=== PATIENT | male | born 2000 | race Caucasian/White ===

== ENCOUNTER 2020-09-01 15:26 | Emergency (ER) | payer OTHER, SELFPAY ==
[2020-09-01 15:43] VITALS: BP 130/78; PULSE 93; RESP 16; TEMP 37.1; O2SAT 98; BMI 41.8
--- NOTE | 2020-09-01 15:51 | DI.CT.S_ITS ---
PROCEDURE: CT THORACIC SPINE WO CON INDICATIONS: Fall/injury TECHNIQUE: Noncontrast 3 mm thick sections acquired through the region of interest in the thoracic spine. Sagittal and coronal reformats were then constructed. For radiation dose reduction, the following was used: automated exposure control. COMPARISON: None. FINDINGS: Image quality: Excellent. Bones: There is normal overall bony alignment. No acute vertebral body compression fractures. No suspicious sclerotic or lytic bony lesions. Central spinal canal is of normal overall caliber. Soft tissues: No paravertebral masses or hematomas. Visualized posteromedial lungs appear clear. IMPRESSION: No evidence of acute thoracic fracture or dislocation. Dictated by: Natanael Asif M.D. on 09/01/2020 at 16:31 Approved by: Natanael Asif M.D. on 09/01/2020 at 16:33
--- NOTE | 2020-09-01 15:51 | DI.CT.S_ITS ---
PROCEDURE: CT HEAD/BRAIN WO CON INDICATIONS: fall TECHNIQUE: Noncontrast 4.5 mm thick angled axial sections acquired from the foramen magnum to the vertex, with coronal and sagittal reformats. For radiation dose reduction, the following was used: automated exposure control, adjustment of mA and/or kV according to patient size. COMPARISON: None. FINDINGS: Image quality: Excellent. CSF spaces: Basal cisterns are patent. No extra-axial fluid collections. Ventricles are normal in size and shape. Brain: No midline shift. No intracranial masses or hemorrhage. Lopez-white matter interface is normal. Skull and face: Calvarium and visualized facial bones are intact, without suspicious lesions. Sinuses: Visualized sinuses and mastoids are clear. IMPRESSION: CT head without acute intracranial abnormalities or acute calvarial fractures. Dictated by: Minh Whitfield M.D. on 09/01/2020 at 15:28 Approved by: Minh Whitfield M.D. on 09/01/2020 at 15:30
--- NOTE | 2020-09-01 15:51 | DI.CT.S_ITS ---
PROCEDURE: CT CERVICAL SPINE WO CON INDICATIONS: fall/injury TECHNIQUE: Noncontrast 3 mm thick sections acquired from the skull base to the T4 level. Sagittal and coronal reformats were then constructed. For radiation dose reduction, the following was used: automated exposure control, adjustment of mA and/or kV according to patient size. COMPARISON: None. FINDINGS: Image quality: Excellent. Bones: No acute fractures or dislocations. Visualized superior ribs are intact. Straightening of cervical lordosis which may be due to patient positioning within a cervical collar and/or concurrent muscle spasms. Soft tissues: Prevertebral soft tissues are normal in thickness. No paravertebral hematomas. No apical pneumothoraces. IMPRESSION: Cervical spine without acute fracture or malalignment. Dictated by: Minh Whitfield M.D. on 09/01/2020 at 15:25 Approved by: Minh Whitfield M.D. on 09/01/2020 at 15:28
--- NOTE | 2020-09-01 15:59 | ED_ITS ---
HPI - Fall General Chief Complaint: Back Pain/Injury Stated Complaint: fall of ladder at work Time Seen by Provider: 09/01/20 15:50 Source: patient Mode of arrival: Ambulatory History of Present Illness HPI Narrative: Patient states he still 15 ft off a ladder. No loss of consciousness. Complains of head and neck pain and back pain. Denies any chest or abdominal or any other limb pain. Denies any trouble breathing. No nausea or vomiting. No vision changes. No confusion. Review of Systems Review of Systems Narrative: GENERAL: Denies chills, fatigue, malaise, fever, sweats. HEENT: Denies sinus pain, ear pain, sore throat, difficulty swallowing RESPIRATORY: Denies dyspnea, cough CARDIOVASCULAR: Denies chest pain, palpitations, edema, GASTROINTESTINAL: Denies nausea, vomiting, abdominal pain, diarrhea, constipation, melena. : Denies dysuria, frequency, hematuria MUSCULOSKELETAL: Complains muscle or bony pain SKIN: Denies rash, skin lesions NEUROLOGIC: Denies weakness, headache, numbness, change in speech, confusion PSYCHIATRIC: No SI or HI or hallucinations ROS Unobtainable: All systems reviewed & are unremarkable except as noted in HPI and below Patient History tobacco type: vaping alcohol intake frequency: a few times a month Substance Use Type: does not use Exam Narrative Exam Narrative: GENERAL: patient appears stated age. Well-nourished, well- developed patient, in no distress, not toxic not dyspneic, clothing removed. Patient remains in underwear HEAD: Normocephalic. Nontender scalp and head and face. Atraumatic. EYES: Pupils equal round and reactive. No scleral icterus. No injection no discharge ENT: Mucous membranes moist. No drooling no tongue elevation no trismus no malocclusion NECK: Trachea midline. No midline tenderness or step-off. Mild bilateral paracervical muscle tenderness CARDIOVASCULAR: Regular rate and rhythm without murmurs, gallops, or rubs. RESPIRATORY: Clear to auscultation. Breath sounds equal bilaterally. No wheezes, rales, or rhonchi. GASTROINTESTINAL: Abdomen soft, non-tender, nondistended. EXTREMITIES: No gross deformities. Nontender bilateral shoulders elbows wrists pelvis hips knees and ankles. No deformities. Full active range of motion without any difficulties on these joints. BACK: There is no midline tenderness or step-off of the thoracic or lumbar spine. There is mild diffuse bilateral paralumbar and parathoracic muscle tenderness. There is a ovoid abrasion in the right paralumbar area. Mild tenderness. Patient does not not want a tetanus shot. No bleeding. NEURO: AOx4. Clear speech no facial droop light touch intact to bilateral face hands and feet. Strong equal vice president pharmacy. Steady suffocate no ataxia. No footdrop. SKIN: Warm and dry PSYCH: Not anxious, is cooperative Initial Vital Signs Initial Vital Signs: Vital Signs Temperature 98.8 F 09/01/20 15:43 Pulse Rate 93 H 09/01/20 15:43 Respiratory Rate 16 09/01/20 15:43 Blood Pressure 130/78 09/01/20 15:43 Pulse Oximetry 98 09/01/20 15:43 Course Course Course Narrative: No new issues well visit in emergency department Orders Ordered: ED Orders 09/01/20 15:51 CT cervical spine wo con Stat CT head/brain wo con Stat CT thoracic spine wo con Stat 09/01/20 15:57 CT lumbar spine wo con Stat Reevaluation(s) Reevaluation #1: Reviewed results with patient. He does not want a tetanus shot. He desires discharge home. He is comfortable with [id number] Tylenol and ibuprofen Time: 16:55 Vital Signs Vital signs: Vital Signs - 8 hr 09/01/20 15:43 Temperature 98.8 F Pulse Rate 93 H Respiratory Rate 16 Blood Pressure 130/78 Pulse Oximetry 98 MDM - Fall Differential Diagnosis Differential diagnosis: Likely compression fracture and other (Abrasion contusion) Imaging Data CT scan - head: Radiologist's Impression: [address] [address] [address] Scan Report Signed Patient: Leticia Bustos#: [id number] : 2000Acct:[id number] Age/Sex: 20 / MDate of Service: 09/01/20 Loc: ED Accession Number: [id number] Procedure: CT head/brain wo con Ordering Provider: Kyle Zavala MD PROCEDURE: CT HEAD/BRAIN WO CON INDICATIONS: fall TECHNIQUE: Noncontrast 4.5 mm thick angled axial sections acquired from the foramen magnum to the vertex, with coronal and sagittal reformats. For radiation dose reduction, the following was used: automated exposure control, adjustment of mA and/or kV according to patient size. COMPARISON: None. FINDINGS: Image quality: Excellent. CSF spaces: Basal cisterns are patent. No extra-axial fluid collections. Ventricles are normal in size and shape. Brain: No midline shift. No intracranial masses or hemorrhage. Lopez-white matter interface is normal. Skull and face: Calvarium and visualized facial bones are intact, without suspicious lesions. Sinuses: Visualized sinuses and mastoids are clear. IMPRESSION: CT head without acute intracranial abnormalities or acute calvarial fractures. Dictated by: Minh Whitfield M.D. on 09/01/2020 at 15:28 Approved by: Minh Whitfield M.D. on 09/01/2020 at 15:30 CT - cervical spine: Radiologist's Impression: [place] [address] CT Scan Report Signed Patient: Leticia Bustos#: [id number] : 2000Acct:[id number] Age/Sex: 20 / MDate of Service: 09/01/20 Loc: ED Accession Number: [id number] Procedure: CT cervical spine wo con Ordering Provider: Kyle Zavala MD PROCEDURE: CT CERVICAL SPINE WO CON INDICATIONS: fall/injury TECHNIQUE: Noncontrast 3 mm thick sections acquired from the skull base to the T4 level. Sagittal and coronal reformats were then constructed. For radiation dose reduction, the following was used: automated exposure control, adjustment of mA and/or kV according to patient size. COMPARISON: None. FINDINGS: Image quality: Excellent. Bones: No acute fractures or dislocations. Visualized superior ribs are intact. Straightening of cervical lordosis which may be due to patient positioning within a cervical collar and/or concurrent muscle spasms. Soft tissues: Prevertebral soft tissues are normal in thickness. No paravertebral hematomas. No apical pneumothoraces. IMPRESSION: Cervical spine without acute fracture or malalignment. Dictated by: Minh Whitfield M.D. on 09/01/2020 at 15:25 Approved by: Minh Whitfield M.D. on 09/01/2020 at 15:28 CT scan thoracic spine: Radiologist's Impression: [address] [address] [address] Scan Report Signed Patient: Theresa BustosSergio#: [id number] : 2000Acct:[id number] Age/Sex: 20 / MDate of Service: 09/01/20 Loc: ED Accession Number: [id number] Procedure: CT thoracic spine wo con Ordering Provider: Kyle Zavala MD PROCEDURE: CT THORACIC SPINE WO CON INDICATIONS: Fall/injury TECHNIQUE: Noncontrast 3 mm thick sections acquired through the region of interest in the thoracic spine. Sagittal and coronal reformats were then constructed. For radiation dose reduction, the following was used: automated exposure control. COMPARISON: None. FINDINGS: Image quality: Excellent. Bones: There is normal overall bony alignment. No acute vertebral body compression fractures. No suspicious sclerotic or lytic bony lesions. Central spinal canal is of normal overall caliber. Soft tissues: No paravertebral masses or hematomas. Visualized posteromedial lungs appear clear. IMPRESSION: No evidence of acute thoracic fracture or dislocation. Dictated by: Natanael Asif M.D. on 09/01/2020 at 16:31 Approved by: Natanael Asif M.D. on 09/01/2020 at 16:33 CT scan lumbar spine: Radiologist's Impression: [place] [address] CT Scan Report Signed Patient: Leticia Bustos#: [id number] : 2000Acct:[id number] Age/Sex: 20 MDate of Service: 09/01/20 Loc: ED Accession Number: [id number] Procedure: CT lumbar spine wo con Ordering Provider: Kyle Zavala MD PROCEDURE: CT LUMBAR SPINE WO CON INDICATIONS: Fall/injury TECHNIQUE: Noncontrast 3 mm thick sections acquired from the T12 level to the sacrum. Sagittal and coronal reformats were constructed. For radiation dose reduction, the following was used: automated exposure control. COMPARISON: None. FINDINGS: Image quality: Excellent. Bones: There is normal bony alignment. No acute vertebral body compression fractures. No suspicious lytic or blastic bony lesions. Central spinal caliber is of normal overall caliber. No pars defects. Soft tissues: No retroperitoneal masses or hematomas. Visualized aorta is normal in caliber. IMPRESSION: No fracture. No acute osseous lesion. If symptoms and/or clinical suspicion for pathology persists, evaluation with MRI may be helpful for further assessment. Dictated by: Patricia Hawkins MD, PhD on 09/01/2020 at 16:24 Approved by: Patricia Hawkins MD, PhD on 09/01/2020 at 16:27 [facility] Narrative Medical decision making narrative: Appropriate for CT scan of the spine at this time. Given fall. Patient denies any abdominal pain chest pain. No labs indicated at this time.. Discharge Plan Departure Patient Disposition: Home Clinical Impression: Back pain due to injury, Acute neck pain, Abrasion of skin Discharge Date/Time: 09/01/20 17:23 Instructions: DI for Low Back Pain, DI for Contusion, DI for Cervical Muscle Strain, DI for Abrasion Activity Restrictions/Additional Instructions: May take Tylenol or ibuprofen for pain. Clean skin wound daily with warm soap and water and then apply topical antibiotic. Call work injury hot line tomorrow for follow-up and re-evaluation for your injuries. Return if worsening questions concerns. Stand Alone Forms: Work Release Note
--- NOTE | 2020-09-01 17:02 | PC.NURSE ---
Fell off ladder at work. Reports midline back/neck pain. Has wide abrasion to left side/flank, KIRSTEN no drainage or bleeding.
[2020-09-01 17:21] VITALS: BP 135/78; PULSE 80; RESP 16; TEMP 37.2; O2SAT 99
== END 2020-09-01 17:23 | disposition home or self-care (01) ==
PROVIDERS: Emergency Provider Emergency Medicine
DX: S39.92XA Unspecified injury of lower back, initial encounter (principal); M54.2 Cervicalgia; S20.411A Abrasion of right back wall of thorax, initial encounter; W11.XXXA Fall on and from ladder, initial encounter; Y99.0 Civilian activity done for income or pay
CPT/HCPCS: 70450; 72125; 72128; 72131; 99283; 99284